=== PATIENT | female | born 1935 | race Caucasian/White ===

== ENCOUNTER → 2018-02-28 | Outpatient (CLI) | payer MEDICARE, BC | LOC: MC.RAD 10:57 | DX: Z12.31 Encounter for screening mammogram for malignant neoplasm of breast (principal); N64.89 Other specified disorders of breast; Z98.82 Breast implant status ==

== ENCOUNTER → 2018-03-08 | Outpatient (CLI) | payer MEDICARE, BC | LOC: MC.RAD 12:58 | DX: N60.02 Solitary cyst of left breast (principal); N64.89 Other specified disorders of breast | CPT/HCPCS: G0279 ==

== ENCOUNTER → 2019-12-26 | Outpatient (CLI) | payer MEDICARE, BC | LOC: MC.RAD 11:00 | DX: Z12.31 Encounter for screening mammogram for malignant neoplasm of breast (principal) ==

== ENCOUNTER → 2021-11-19 | Outpatient (CLI) | payer MEDICARE, BC | LOC: MC.RAD 12:56 | DX: Z12.31 Encounter for screening mammogram for malignant neoplasm of breast (principal) ==